=== PATIENT | female | born 1985 | race Caucasian/White ===

== ENCOUNTER 2024-12-13 06:14 | Day surgery (SDC) | payer OTHER ==
[2024-12-03 07:56] VITALS: BP 105/69
[2024-12-03 07:58] LABS: HEMATOCRIT 33.8 % (36.0-45.00); HEMOGLOBIN 11.1 g/dL (12.0-15.00); MEAN CELL VOLUME 87.2 fL (80.00-100.00); MEAN CORPUSCULAR HEMOGLOBIN 28.6 pg (27.00-32.0); MEAN CORPUSCULAR HGB CONC 32.8 g/dl (32.0-36.0); PLATELET COUNT 246 K/uL (150-450); RED BLOOD COUNT 3.87 M/uL (4.00-6.00); RED CELL DISTRIBUTION WIDTH 14.9 % (11.5-14.5)
[2024-12-03 08:16] LABS: INR 0.96; PARTIAL THROMBOPLASTIN TIME 25.4 SECONDS (22.0-34.0); PROTHROMBIN TIME 10.5 SECONDS (9.0-11.5)
[2024-12-03 08:18] LABS: PH,URINE 6.5 (5.0-8.0); URINE APPEARANCE Clear; URINE BILIRRUBIN Negative (NEGATIVE); URINE BLOOD Negative; URINE COLOR Yellow; URINE GLUCOSE Negative (NEGATIVE); URINE KETONE Negative (NEGATIVE); URINE LEUKOCYTE Negative; URINE NITRATE Negative; URINE PROTEIN Negative (NEGATIVE); URINE UROBILINOGEN 0.2 E.U./dl
[2024-12-03 08:22] LABS: URINE BACTERIA 2452.8 uL (0.0-1933); URINE RBC 5.4 uL (0.0-20.8); URINE WBC 5.8 uL (0.0-23.2)
[2024-12-03 08:31] LABS: ALBUMIN 3.6 gm/dL (3.4-5.0); BILIRUBIN TOTAL 0.22 mg/dL (0.3-1.2); CALCIUM 8.7 mg/dL (8.5-10.1); CREATININE SERUM 0.92 mg/dL (0.55-1.02); GFR 67.27; GLOBULINA 3.6 G/DL (2.4-3.5); POTASSIUM 4.25 mEq/L (3.5-5.1); TOTAL PROTEIN 7.2 gm/dL (6.4-8.2)
[~2024-12-13] VITALS: Ht 154.9 cm; Wt 50.8 kg
[2024-12-13] MEDS ORDERED: POVIDONE-IODINE 118 ML BOTT TOP ONE (08:51)
== END 2024-12-13 12:05 | disposition home or self-care (01) ==
LOC: CIR.AMB 06:14
PROVIDERS: ATTEND Obstetrics & Gynecology
DX: N93.8 Other specified abnormal uterine and vaginal bleeding (principal)